=== PATIENT | female | born 1965 ===

== ENCOUNTER 2019-12-30 09:01 | Outpatient (REF) | payer MEDICAID, SELFPAY ==
--- NOTE | 2019-12-30 | MM_ITS ---
EXAMINATION: MM SCREENING DIGITAL BREAST TOMOSYNTHESIS, BILATERAL CLINICAL INFORMATION: Screening. Asymptomatic. The lifetime risk of breast cancer based on the Tyrer-Cuzick Model is 6%. COMPARISON: Outside mammography: 10/10/2016, 05/04/2014 ([facility]). TECHNIQUE: Digital breast tomosynthesis is performed in both the craniocaudal and mediolateral oblique views along with computer-aided detection (CAD). Synthesized 2D images are generated from the tomosynthesis. Additional bilateral exaggerated CC views are provided. FINDINGS: There are scattered areas of fibroglandular density (ACR BI-RADS breast composition Category b). There are no significant masses, abnormal calcifications, or other abnormalities. There are scattered bilateral round, rim, predominantly dermal calcifications again seen. The axilla and skin contours are unremarkable. MM/MM tomosynthesis screening BI IMPRESSION: No mammographic evidence of malignancy. ASSESSMENT: BI-RADS 1: Negative RECOMMENDATION: Routine annual mammography screening. This patient's information was entered into a reminder system with a target due date for their next mammogram.
== END 2019-12-30 09:02 | disposition home or self-care (01) ==
LOC: HO.MAMMO 09:01
PROVIDERS: PCP Family Medicine; Visit Provider Family Medicine
DX: Z12.31 Encounter for screening mammogram for malignant neoplasm of breast (principal)
CPT/HCPCS: 77063; 77067

== ENCOUNTER 2023-08-31 10:34 | Outpatient (REF) | payer MEDICAID, SELFPAY ==
--- NOTE | ~2023-08-31 | XR_ITS ---
EXAMINATION: XR LEFT WRIST AND HAND AND BILATERAL HIPS CLINICAL INFORMATION: Bilateral hip pain for years. Worsening left hand pain for 6 months, denies injury and states her left hand cramps with pain in her thumb. History of IP pain. Left/wrist, CMC joints of thumb chronic pain. Family history of metabolic bone disease. TECHNIQUE: 3 views left wrist, 3 views left hand, and 2 views of each hip. COMPARISON: None FINDINGS: LEFT WRIST: Ztjngbnz-ly-mpflke degenerative changes in the first carpometacarpal joint with joint space narrowing and hypertrophic change. Cystic lucencies are present at the base of the first metatarsal. Mild narrowing of the radiocarpal joint. LEFT HAND: Minimal degenerative changes in multiple IP joints. RIGHT HIP: Mild degenerative changes in the right hip. Alignment maintained. Limited visualization due to body habitus. LEFT HIP: Mild degenerative changes in the right hip. Alignment maintained. Limited visualization due to body habitus. XR/XR hand LT min 3V IMPRESSION: 1. Pyhiqhzq-pd-izvpgr degenerative changes in the first carpometacarpal joint. 2. Mild degenerative changes in the bilateral hips. 3. Additional imaging with CT scan or MRI recommended if there is clinical concern for fracture or other underlying pathology.
--- NOTE | ~2023-08-31 | XR_ITS ---
EXAMINATION: XR LEFT WRIST AND HAND AND BILATERAL HIPS CLINICAL INFORMATION: Bilateral hip pain for years. Worsening left hand pain for 6 months, denies injury and states her left hand cramps with pain in her thumb. History of IP pain. Left/wrist, CMC joints of thumb chronic pain. Family history of metabolic bone disease. TECHNIQUE: 3 views left wrist, 3 views left hand, and 2 views of each hip. COMPARISON: None FINDINGS: LEFT WRIST: Veujwhpe-qm-xigpdz degenerative changes in the first carpometacarpal joint with joint space narrowing and hypertrophic change. Cystic lucencies are present at the base of the first metatarsal. Mild narrowing of the radiocarpal joint. LEFT HAND: Minimal degenerative changes in multiple IP joints. RIGHT HIP: Mild degenerative changes in the right hip. Alignment maintained. Limited visualization due to body habitus. LEFT HIP: Mild degenerative changes in the right hip. Alignment maintained. Limited visualization due to body habitus. XR/XR hip RT min 2V IMPRESSION: 1. Evuieaqt-ab-ivyhir degenerative changes in the first carpometacarpal joint. 2. Mild degenerative changes in the bilateral hips. 3. Additional imaging with CT scan or MRI recommended if there is clinical concern for fracture or other underlying pathology.
--- NOTE | ~2023-08-31 | XR_ITS ---
EXAMINATION: XR LEFT WRIST AND HAND AND BILATERAL HIPS CLINICAL INFORMATION: Bilateral hip pain for years. Worsening left hand pain for 6 months, denies injury and states her left hand cramps with pain in her thumb. History of IP pain. Left/wrist, CMC joints of thumb chronic pain. Family history of metabolic bone disease. TECHNIQUE: 3 views left wrist, 3 views left hand, and 2 views of each hip. COMPARISON: None FINDINGS: LEFT WRIST: Detxiphl-bc-lrknce degenerative changes in the first carpometacarpal joint with joint space narrowing and hypertrophic change. Cystic lucencies are present at the base of the first metatarsal. Mild narrowing of the radiocarpal joint. LEFT HAND: Minimal degenerative changes in multiple IP joints. RIGHT HIP: Mild degenerative changes in the right hip. Alignment maintained. Limited visualization due to body habitus. LEFT HIP: Mild degenerative changes in the right hip. Alignment maintained. Limited visualization due to body habitus. XR/XR wrist LT min 3V IMPRESSION: 1. Tfcujfdg-tu-qqpjyk degenerative changes in the first carpometacarpal joint. 2. Mild degenerative changes in the bilateral hips. 3. Additional imaging with CT scan or MRI recommended if there is clinical concern for fracture or other underlying pathology.
--- NOTE | ~2023-08-31 | XR_ITS ---
EXAMINATION: XR LEFT WRIST AND HAND AND BILATERAL HIPS CLINICAL INFORMATION: Bilateral hip pain for years. Worsening left hand pain for 6 months, denies injury and states her left hand cramps with pain in her thumb. History of IP pain. Left/wrist, CMC joints of thumb chronic pain. Family history of metabolic bone disease. TECHNIQUE: 3 views left wrist, 3 views left hand, and 2 views of each hip. COMPARISON: None FINDINGS: LEFT WRIST: Lrlozxcd-ja-kpjhfp degenerative changes in the first carpometacarpal joint with joint space narrowing and hypertrophic change. Cystic lucencies are present at the base of the first metatarsal. Mild narrowing of the radiocarpal joint. LEFT HAND: Minimal degenerative changes in multiple IP joints. RIGHT HIP: Mild degenerative changes in the right hip. Alignment maintained. Limited visualization due to body habitus. LEFT HIP: Mild degenerative changes in the right hip. Alignment maintained. Limited visualization due to body habitus. XR/XR hip LT min 2V IMPRESSION: 1. Yyqclqbh-wn-cfjkcr degenerative changes in the first carpometacarpal joint. 2. Mild degenerative changes in the bilateral hips. 3. Additional imaging with CT scan or MRI recommended if there is clinical concern for fracture or other underlying pathology.
[2023-08-31 11:46] LABS: Estimated Average Glucose 137 mg/dL; Hemoglobin A1c % 6.4 % (<6.0)
[2023-08-31 11:50] LABS: Alanine Aminotransferase 21 U/L (0-31); Alkaline Phosphatase 62 U/L (39-117); Anion Gap 15 (12-20); Aspartate Amino Transferase 14 U/L (5-31); Bilirubin Total 0.5 mg/dL (0.0-1.0); Blood Urea Nitrogen 15 mg/dL (9-16); Calcium 9.5 mg/dL (8.4-10.2); Carbon Dioxide 21 mmol/L (22-29); Chloride 108 mmol/L (96-108); Cholesterol 225 mg/dL (<200); Estimated Glomerular Filt Rate 48; Glucose Random 126 mg/dL (60-115); HDL Cholesterol 36 mg/dL (>40); Potassium 3.8 mmol/L (3.3-5.1); Sodium 140 mmol/L (135-145); Total Protein 7.4 g/dL (6.5-8.0); Triglycerides 637 mg/dL (<150)
[2023-08-31 12:16] LABS: TSH reflex Free T4 1.43 uIU/mL (0.32-4.0)
[2023-08-31 12:36] LABS: Reflex LDLD? Yes
[2023-09-01 13:04] LABS: LDL Cholesterol Direct 55 mg/dL (<100)
[2023-09-05 18:53] LABS: HPV mRNA E6/E7 Detected (Not Detected)
== END 2023-08-31 10:35 | disposition home or self-care (01) ==
LOC: HO.HHCL 10:34
PROVIDERS: Visit Provider Family Medicine
DX: Z01.419 Encounter for gynecological examination (general) (routine) without abnormal findings (principal); E78.5 Hyperlipidemia, unspecified; I10 Essential (primary) hypertension; R73.01 Impaired fasting glucose; M62.838 Other muscle spasm; M79.645 Pain in left finger(s); G89.29 Other chronic pain; M25.551 Pain in right hip; M25.552 Pain in left hip; B97.7 Papillomavirus as the cause of diseases classified elsewhere; N72 Inflammatory disease of cervix uteri
CPT/HCPCS: 36415; 73110; 73130; 73502; 80053; 80061; 83036; 83721; 83735; 84443; 87624; 88175

== ENCOUNTER 2023-09-04 08:16 | Outpatient (REF) | payer MEDICAID, SELFPAY ==
--- NOTE | ~2023-09-04 | MM_ITS ---
EXAMINATION: MM SCREENING DIGITAL BREAST TOMOSYNTHESIS, BILATERAL CLINICAL INFORMATION: Screening. Asymptomatic. COMPARISON: Mammography: This study is compared with prior exams dating back to 2017. TECHNIQUE: Digital breast tomosynthesis is performed in both the craniocaudal and mediolateral oblique views along with computer-aided detection (CAD). Synthesized 2D images are generated from the tomosynthesis. FINDINGS: The breasts are almost entirely fatty (ACR BI-RADS breast composition Category a). There are no significant masses, abnormal calcifications, or other abnormalities. MM/MM tomosynthesis screening BI IMPRESSION: No mammographic evidence of malignancy. ASSESSMENT: BI-RADS BI-RADS 1 - Negative RECOMMENDATION: Routine annual mammography screening. 1 year F/U This examination should not preclude the clinical evaluation of a suspicious palpable abnormality. This patient's information was entered into a reminder system with a target due date for their next mammogram.
== END 2023-09-04 08:17 | disposition home or self-care (01) ==
LOC: HO.MAMMO 08:16
PROVIDERS: PCP Family Medicine; Visit Provider Family Medicine
DX: Z12.31 Encounter for screening mammogram for malignant neoplasm of breast (principal)
CPT/HCPCS: 77063; 77067

== ENCOUNTER → 2023-09-04 08:30 | Outpatient (BNV) | payer MEDICAID, SELFPAY | PROVIDERS: PCP Family Medicine; Visit Provider Radiology Diagnostic Radiology | DX: Z12.31 Encounter for screening mammogram for malignant neoplasm of breast (principal) | CPT/HCPCS: 77063; 77067 ==

== ENCOUNTER 2023-12-17 08:36 | Outpatient (AMB) | payer MEDICAID, SELFPAY ==
--- NOTE | 2023-12-17 10:04 | A.OFFVIS_ITS ---
Vital Signs 3 12/17/23 10:17 Height 5 ft 8 in Weight 256 lb 8 oz BMI 39.0 BP 166/82 H Blood Pressure Location Lt brachial Position Sitting Pulse 61 Intake Visit Reasons: Pilar cyst of scalp Intake Note: Patient is seen in office for evaluation and treatment of a pilar cyst of the scalp. Pt c/o: onset for years, has increase in size, painful and itchy, denies discharge, redness, swelling, had some removed in the past by Dr Rankin Pattern Filer Required: No Accompanied by: Self / Same As Patient Allergies No Known Allergies Allergy (Unverified 12/17/23 10:18) Medication List - Last Reconciled 12/17/23 by Lalo Shelley MD atenolol 50 mg PO DAILY loratadine 10 mg PO DAILY omeprazole 40 mg PO DAILY HPI Comments Details: 58-year-old female patient presenting for evaluation of a Pilar cyst. She has had numerous previous Pilar cyst removed by Dr. Rankin and feels this is similar. She reports for cysts and total including 2 in the posterior scalp 1 on the left parietal scalp and a 4th on the right parietal scalp. She feels the cysts have gradually increased in size over the years and is now itchy and causing irritation. She denies bleeding or discharge. [facility] Surgical History Hx of excision of mass History of bunionectomy Social History Alcohol intake: never Patient Tobacco Use Status: Never used Tobacco Review of Systems Const All systems reviewed & are unremarkable except as noted in HPI and below Denies chills, Denies fever(s), Denies headache(s), Denies poor appetite and Denies weakness ENT Denies headache(s) Card Denies chest pain, Denies irregular heart rhythm, Denies palpitations and Denies dyspnea Resp Denies cough, Denies excessive phlegm production and Denies dyspnea GI Denies abdominal pain, Denies bloating, Denies change in bowel habits, Denies constipation, Denies heartburn, Denies diarrhea, Denies nausea and Denies vomiting Denies urinary frequency Musc Denies back pain, Denies muscle weakness and Denies numbness Skin/Breast Denies changing lesions and Denies unusual bruising Neuro Denies headache(s), Denies numbness, Denies paresthesias and Denies weakness Psych Denies anxiety and Denies depression Endo Denies palpitations Edgar/Lymph Denies lymphadenopathy Physical Exam Vital Signs: Last Vital Signs Pulse 61 12/17/23 10:17 BP 166/82 H 12/17/23 10:17 BMI result Body Mass Index 39.0 Const General: cooperative and no acute distress Nutritional Appearance: well nourished Orientation/consciousness: patient oriented x3 Limitations: no limitations HEENT Head: Yes normocephalic and Yes atraumatic Head images: 2 1. 1.5 cm Pilar cyst 2. 1.5 cm Pilar cyst 3. 1.5 cm Pilar cyst 4. 1 cm Pilar cyst Ears: hearing grossly normal bilaterally Resp Effort & Inspection: normal respiratory effort, no audible wheezes, no cough and no respiratory distress Cardio Jugular venous distension: no JVD GI Inspection: Yes normal to inspection Skin Other: Warm, dry, no rash Neuro General: patient oriented x3 Extrem General: Yes no clubbing, cyanosis or edema Assessment & Plan Assessment & Plan (1) Pilar cyst of scalp: Code(s): L72.11 - Pilar cyst Category: Medical Plan Patient presents with for enlarging Pilar cysts of the scalp which are now causing irritation. She has requested excision of all 4 lesions. I reviewed the procedure, risks and alternatives, and she consents to the surgery. This will be performed as an office procedure under local anesthesia. Coding Level of Care Code New Pt Level 4 (32827) Diagnoses Pilar cyst of scalp L72.11
[2023-12-17 10:17] VITALS: BP 166/82; PULSE 61; BMI 39.0
== END 2023-12-17 10:31 | disposition home or self-care (01) ==
LOC: HO.HGS 08:36
PROVIDERS: PCP Family Medicine; Visit Provider Surgery
DX: L72.11 Pilar cyst (principal)
CPT/HCPCS: 99204

== ENCOUNTER → 2023-12-17 08:36 | Outpatient (BNVA) | payer MEDICAID, SELFPAY | PROVIDERS: PCP Family Medicine; Visit Provider Surgery | DX: L72.11 Pilar cyst (principal) | CPT/HCPCS: 99202 ==

== ENCOUNTER 2023-12-31 08:54 | Outpatient (AMB) | payer MEDICAID, SELFPAY ==
--- NOTE | 2023-12-31 09:14 | A.OFFVIS_ITS ---
Vital Signs 12/31/23 09:46 Height 5 ft 8 in Weight 255 lb 11.779 oz BMI 38.9 Pulse 60 Intake Visit Reasons: excision 4 lesions on scalp Intake Note: Patient is seen for office procedure, excision of multiple scalp lesion. Construction Grip Required: No Accompanied by: Self / Same As Patient Allergies No Known Allergies Allergy (Unverified 12/31/23 09:16) HPI Comments Details: Patient returns for excision of 4 Pilar cysts of the scalp. She denies any changes since her last visit. [facility] Surgical History Hx of excision of mass History of bunionectomy Social History Alcohol intake: never Patient Tobacco Use Status: Never used Tobacco Physical Exam HEENT Other: Four Pilar cyst as noted previously. Office Procedures Excision Details: Preoperative diagnosis: Pilar cyst x3 scalp Postoperative diagnosis: Same Procedure: Excision of Pilar cyst x3 Surgeon: Lalo Shelley MD Bridge Worker: None Anesthesia: Lidocaine 1% with epinephrine Indications for procedure: Enlarging painful Pilar cysts including 2 in the posterior scalp and 1 on the left parietal scalp each 1.5 cm in diameter Operative findings: 1.5 cm Pilar cyst x2 in the posterior scalp (occipital) and 1.5 cm Pilar cyst of the left parietal scalp Specimen: Pilar cyst x3 Estimated blood loss: 1 mL Complications: None Procedure details: Patient confirmed the site of surgery including 2 Pilar cyst in the posterior scalp and 1 in the left parietal scalp. The previously palpated cyst in the right parietal scalp is quite small and will be left in place. After assuring informed consent the patient was placed in a right lateral decubitus position. The scalp was prepped with Betadine and draped in a sterile fashion. Beginning in the occipital scalp local anesthesia was infiltrated over both adjacent cysts. An incision was made over each cyst and a hemostat used to excise the Pilar cyst at each site. These were sent together to pathology. Hemostasis was assured using light pressure. Skin was closed using a 3-0 Prolene suture at each site. Attention was then directed to the parietal scalp were again an incision was made after applying local anesthesia. Hemostat was then used to dissect the cyst from the subcutaneous tissue. Skin was closed using a 3-0 Prolene suture. The patient tolerated the procedure well and was discharged in stable condition. [id number] scalp/neck/hands/feet/genitalia 1.1cm-2cm (x 3 lesions 1.5 cm each) Procedure code (CPT) selection complete Assessment & Plan Assessment & Plan (1) Pilar cyst of scalp: Code(s): L72.11 - Pilar cyst Category: Medical Plan Pilar cyst x3 of scalp. Patient underwent excision of the Pilar cyst today under local anesthesia. Patient tolerated the procedure well and will return in 1 week for suture removal. Orders: Orders Surgical Today L72.11 - Pilar cyst Coding Level of Care Code Procedure Only Diagnoses Pilar cyst of scalp L72.11 CPT Codes Scalp/Neck/Hands/Feet/Genetalia - CPT: 77234-[id number] scalp/neck/hands/feet/genitalia 1.1cm-2cm ([id number])
[2023-12-31 09:46] VITALS: PULSE 60; BMI 38.9
== END 2023-12-31 09:47 | disposition home or self-care (01) ==
PROVIDERS: PCP Family Medicine; Visit Provider Surgery
DX: L72.11 Pilar cyst (principal)
CPT/HCPCS: 11422

== ENCOUNTER 2023-12-31 08:54 | Outpatient (REF) | payer MEDICAID, SELFPAY | END 2023-12-31 08:55 | disposition home or self-care (01) | LOC: HO.LNP 08:54 | PROVIDERS: PCP Family Medicine; Visit Provider Surgery | DX: L72.11 Pilar cyst (principal) | CPT/HCPCS: 11422; 88304 ==

== ENCOUNTER 2024-01-12 14:33 | Outpatient (AMB) | payer MEDICAID, SELFPAY ==
--- NOTE | 2024-01-12 14:46 | A.OFFVIS_ITS ---
Vital Signs 01/12/24 14:54 Height 5 ft 8 in Weight 257 lb 7.999 oz BMI 39.1 Pulse 62 Intake Visit Reasons: s/p excision 4 lesions on scalp stitch removal Intake Note: Patient is seen in office for post op assessment post excision of pilar cyst x3 of scalp. Pt c/o: denies any concerns, suture removed at visit Wealth Management Director Required: No Accompanied by: Self / Same As Patient Allergies No Known Allergies Allergy (Unverified 01/12/24 14:54) HPI Comments Details: Patient returns following excision of 3 Pilar cysts of the scalp. She tolerated the procedure well and returns today for suture removal. She denies any ongoing scalp symptoms. [facility] Surgical History Hx of excision of mass History of bunionectomy Social History Alcohol intake: never Patient Tobacco Use Status: Never used Tobacco Physical Exam Vital Signs: Last Vital Signs Pulse 62 01/12/24 14:54 BMI result Body Mass Index 39.1 HEENT Other: Wounds are clean, dry, and intact. Sutures removed and incisions found to be well healed. Skin Other: Warm, dry, no rashes Assessment & Plan Assessment & Plan (1) Pilar cyst of scalp: Code(s): L72.11 - Pilar cyst Category: Medical Plan Patient returns following excision of 3 Pilar cysts of the scalp. She tolerated the procedure well and her wounds are healing nicely. She should follow up as needed. Coding Level of Care Code Global (38939) Diagnoses Pilar cyst of scalp L72.11
[2024-01-12 14:54] VITALS: PULSE 62; BMI 39.1
== END 2024-01-12 15:03 | disposition home or self-care (01) ==
PROVIDERS: PCP Family Medicine; Visit Provider Surgery
DX: L72.11 Pilar cyst (principal)
CPT/HCPCS: 99024

== ENCOUNTER → 2024-01-12 14:33 | Outpatient (BNVA) | payer MEDICAID, SELFPAY | PROVIDERS: PCP Family Medicine; Visit Provider Surgery | DX: Z48.02 Encounter for removal of sutures (principal); Z87.2 Personal history of diseases of the skin and subcutaneous tissue; Z98.890 Other specified postprocedural states | CPT/HCPCS: 99212 ==

== ENCOUNTER 2024-05-16 08:19 | Outpatient (REF) | payer MEDICAID, SELFPAY ==
[2024-05-16 13:08] LABS: Estimated Average Glucose 275 mg/dL; Hemoglobin A1c % 11.2 % (<6.0); Total Hemoglobin (HGBA1C) 3671.5637 umol/L
[2024-05-16 13:41] LABS: Creatinine Urine 47.52 mg/dL; Microalbum/Creatinine Ratio Ur 25.2 ug/mg cr (<30)
[2024-05-16 13:53] LABS: Cholesterol 437 mg/dL (<200); HDL Cholesterol 23 mg/dL (>40)
[2024-05-16 14:16] LABS: Triglycerides 3269 mg/dL (<150)
[2024-05-16 14:52] LABS: Alanine Aminotransferase 45 U/L (0-31); Albumin Level 3.8 g/dL (3.5-5.0); Alkaline Phosphatase 96 U/L (39-117); Anion Gap 19 (12-20); Aspartate Amino Transferase 35 U/L (5-31); Bilirubin Total 0.5 mg/dL (0.0-1.0); Blood Urea Nitrogen 18 mg/dL (9-16); Calcium 9.1 mg/dL (8.4-10.2); Carbon Dioxide 21 mmol/L (22-29); Chloride 98 mmol/L (96-108); Estimated Glomerular Filt Rate 38; Glucose Random 499 mg/dL (60-115); Potassium 4.5 mmol/L (3.3-5.1); Sodium 133 mmol/L (135-145); TSH reflex Free T4 1.69 uIU/mL (0.32-4.0); Total Protein 7.5 g/dL (6.5-8.0); Vitamin D 25-OH Total 30.5 ng/mL (>30)
[2024-05-16 15:01] LABS: Reflex LDLD? Yes
[2024-05-17 05:15] LABS: LDL Cholesterol Direct 72 mg/dL (<100)
== END 2024-05-16 08:20 | disposition home or self-care (01) ==
LOC: HO.HHCL 08:19
PROVIDERS: Visit Provider Family Medicine
DX: I12.9 Hypertensive chronic kidney disease with stage 1 through stage 4 chronic kidney disease, or unspecified chronic kidney disease (principal); N18.31 Chronic kidney disease, stage 3a; E78.5 Hyperlipidemia, unspecified; E55.9 Vitamin D deficiency, unspecified; M62.838 Other muscle spasm
CPT/HCPCS: 36415; 80053; 80061; 82043; 82306; 82570; 83036; 83721; 83735; 84443

== ENCOUNTER 2024-08-10 09:16 | Outpatient (AMB) | payer MEDICAID, SELFPAY ==
[2024-08-10 09:36] VITALS: BMI 39.1
--- NOTE | 2024-08-10 09:36 | MHC.OFFVIS ---
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 Patient states she is having locking an catching in her left ring finger. Reports she has tried special medicated gloves, helped with pain as well as the locking and catching, also reports using a thumb brace. hx of arthritis. States she is having numbness and tingling in bilateral hands. Allergies Seasonal Allergies Allergy (Mild, Verified 08/10/24 09:45) Sneezing HPI HPI CHANGE MANAGEMENT ADMINISTRATOR: B/L trigger finger Thumb, MF: Details: Jamilah is a 59 year old right hand dominant female who presents today for bilateral locking and catching. Patient states she is having locking an catching in her left ring finger. Reports she has tried special medicated gloves, helped with pain as well as the locking and catching, also reports using a thumb brace. hx of arthritis. States she is having numbness and tingling in bilateral hands. [facility] Surgical History Hx of excision of mass History of bunionectomy Social History Alcohol intake: never Patient Tobacco Use Status: Never used Tobacco Review of Systems Const All systems reviewed & are unremarkable except as noted in HPI and below Physical Exam Vital Signs: BMI result Body Mass Index 39.1 Extrem Other: Patient is alert, oriented, and in no acute distress. Neuro: Normal sensation of the tips of all digits of the bilateral hands at this time Vascular: Cap refill brisk Pain: To pain associated with locking and catching of bilateral thumbs and left ring finger Tenderness to palpation of the A1 pulleys of the digits ROM: Visible and palpable locking and catching of bilateral thumbs and left ring finger Patient is able to flex and extend all other digits of bilateral hands fully and without difficulty Skin: No lacerations or abrasions. General: No ecchymosis, erythema, or evidence of infection. Psych: Appears grossly normal Affect normal Attitude cooperative Assessment & Plan Assessment & Plan (1) Bilateral trigger thumb: Code(s): M65.311 - Trigger thumb, right thumb; M65.312 - Trigger thumb, left thumb Category: Medical (2) Trigger finger, left ring finger: Code(s): M65.342 - Trigger finger, left ring finger Category: Medical Plan 1. Bilateral trigger thumbs 2. Left ring finger trigger finger Patient is educated about this condition Patient is educated about the typical treatment course At this time, patient would like to hold off on any acute intervention Follow-up when she is ready to discuss intervention Coding Level of Care Code New Pt Level 3 (27068) Diagnoses Bilateral trigger thumb M65.311; M65.312 Trigger finger, left ring finger M65.342
== END 2024-08-10 09:57 | disposition home or self-care (01) ==
LOC: HO.HOS 09:17
PROVIDERS: PCP Family Medicine
DX: M65.311 Trigger thumb, right thumb (principal); M65.312 Trigger thumb, left thumb; M65.342 Trigger finger, left ring finger
CPT/HCPCS: 99203

== ENCOUNTER → 2024-08-10 09:16 | Outpatient (BNVA) | payer MEDICAID, SELFPAY | PROVIDERS: PCP Family Medicine | DX: M65.311 Trigger thumb, right thumb (principal); M65.312 Trigger thumb, left thumb; M65.342 Trigger finger, left ring finger | CPT/HCPCS: 99212 ==

== ENCOUNTER 2024-08-17 11:01 | Outpatient (REF) | payer MEDICAID, SELFPAY ==
--- OUTSIDE RECORDS SUMMARY | 2024-08-17 11:46 | XMS_ITS | Encounter Summary ---
Author Organization [employer] Address [address] [place] [address] Care Team Providers Care Wet Silk Hanger Name Role Phone Susy Mills MD Primary Care Provider [phone] Cloten Leavitt PharmD Unavailable [phone] Encounter Details Date Type Department Care Team (Latest Contact Info) Description 08/17/2024 Travel Social History Tobacco Use Types Packs/Day Years Used Date Smoking Tobacco: Never Passive Smoke Exposure: Never Smokeless Tobacco: Never Depression Answer Date Recorded Patient Health Questionnaire-9 Score 7 05/09/2024 Patient Health Questionnaire-9 Score 7 05/09/2024 Last PHQ-9: Questionnaire Data Not on file 0 05/09/2024 Housing Stability Answer Date Recorded What is your housing situation today? I have caleb dietrich 08/31/[address] you li ve. Do you have problems with any of the following? None of the above 08/31/2023 Food Insecurity Answer Date Recorded Within the past 12 months, y ou worried that your food would run out before you got money to buy more: Never True 08/31/2023 Within the past 12 months,th e food you bought just didn't last and you didn't have enough money to get more: Never True Transportation Answer Date Recorded In the past 12 months, has l ack of transportation kept you from medical appts, meetings, work or from getting things needed for daily living? No 08/31/2023 Utilities Answer Date Recorded In the past 12 months, has t he electric, gas, oil or water company threatened to shut off services in your home? No 08/31/2023 Depression Answer Date Recorded Patient Health Questionnaire-2 Score 1 05/09/2024 Internet Access Answer Date Recorded Internet Access Q1 No 10/19/2023 Internet Access Q2 I do not want or need it 03/2023 Comments Unknown Sex and Gender Information Value Date Recorded Sex Assigned at Female 12/16/2021 10:15 AM EDT Legal Sex Female 10:15 AM EDT Gender Identity Female 12/16/2021 10:15 AM EDT Sexual Orientation Choose not to disclose 2021 10:15 AM EDT documented as of this encounter Functional Status * Over the last 2 weeks, how often have you been bothered by any of the following problems? Question Answer Date of Assessment Author Feeling nervous, anxious, or on edge 3 08/17/2024 9:09 AM LOYDT Dionna Kang MA Not being able to stop or control worrying 3 08/17/2024 9:09 AM EDT Dionna Kang MA Worrying too much about different things 3 08/17/2024 9:09 AM EDT Dionna Kang MA Trouble relaxing 3 08/17/2024 9:09 AM EDT Lucina Felix MA Being so restless that it is hard to sit still 3 08/17/2024 9:09 AM LOYDT Dionna Kang MA Becoming easily annoyed or irritable 3 08/17/2024 9:09 AM EDT Dionna Kagn MA Feeling afraid as if somethi ng awful might happen 3 08/17/2024 9:09 AM LOYDT Dionna Kang MA ZENIA-7 Total Score 21 08/17/2024 9:09 AM LOYDT Lucina Kang MA documented as of this encounter Plan of Treatment Upcoming Encounters Date Type Department Care Team (Late st Contact Info) Description 08/26/2024 9:00 AM EDT Office Visit [facility] [address] [place] [address] Holly Gonzalez, OD [address] [place] [address] documented as of this encounter Goals Goal Patient Goal Type Associated Problems Recent Progress Patient-Stated? Author Blood Pressure < 140/90 Blood Pressure 130/90( 025 9:09 AM EDT) No Colten Leavitt, PharmD documented as of this encounter Visit Diagnoses Not on filedocumented in this encounter Additional Health Concerns Assessment Noted Time PHQ-9 Depression Total Score: 7 05/10/19 25 1:05 PM EDT documented as of this encounter Care Teams Wet Silk Hanger Relationship Specialty Start Date End Date Susy Mills MD [address] [place] [address] PCP - General Family Medicine 09/02/13 Colten Leavitt, PharmD [address] [place] [address] Pharmacist Internal Medicine 10/06/23 documented as of this encounter
[2024-08-17 13:59] LABS: Alanine Aminotransferase 16 U/L (0-31); Albumin Level 4.3 g/dL (3.5-5.0); Alkaline Phosphatase 98 U/L (39-117); Anion Gap 18 (12-20); Aspartate Amino Transferase 24 U/L (5-31); Blood Urea Nitrogen 15 mg/dL (9-16); Calcium 9.9 mg/dL (8.4-10.2); Carbon Dioxide 22 mmol/L (22-29); Chloride 94 mmol/L (96-108); Cholesterol 429 mg/dL (<200); Estimated Glomerular Filt Rate 47; HDL Cholesterol 30 mg/dL (>40); Potassium 4.0 mmol/L (3.3-5.1); Sodium 130 mmol/L (135-145); Total Protein 8.4 g/dL (6.5-8.0); Triglycerides 2153 mg/dL (<150)
[2024-08-17 14:25] LABS: Reflex LDLD? Yes
== END 2024-08-17 11:02 | disposition home or self-care (01) ==
LOC: HO.HHCL 11:01
PROVIDERS: PCP Family Medicine; Visit Provider Family Medicine
DX: E78.5 Hyperlipidemia, unspecified (principal); R74.01 Elevation of levels of liver transaminase levels; N18.32 Chronic kidney disease, stage 3b
CPT/HCPCS: 36415; 80048; 80061; 80076; 83721

== ENCOUNTER 2024-09-09 08:05 | Outpatient (REF) | payer MEDICAID, SELFPAY ==
--- OUTSIDE RECORDS SUMMARY | 2024-09-09 08:09 | XMS_ITS | Encounter Summary ---
Author Organization [employer] Address [address] [place] [address] Care Team Providers Care Photocopier Technician Name Role Phone Susy Mills MD Primary Care Provider [phone] Colten Leavitt PharmD Unavailable [phone] Encounter Details Date Type Department Care Team (Latest Contact Info) Description 02/22/2018 Abstract [facility] CONVERSIONS Dental, Provider, DDS Social History Tobacco Use Types Packs/Day Years Used Date Smoking Tobacco: Never Assessed Comments Unknown Sex and Gender Information Value Date Recorded Sex Assigned at Female 12/16/2021 10:15 AM EDT Legal Sex Female 10:15 AM EDT Gender Identity Female 12/16/2021 10:15 AM EDT Sexual Orientation Choose not to disclose 2021 10:15 AM EDT documented as of this encounter Plan of Treatment Upcoming Encounters Date Type Department Care Team (Late st Contact Info) Description 10/19/2024 9:00 AM EDT Medication Management [facility] MEDICINE [address] [place] [address] Colten Leavitt, PharmD [address] [place] [address] 10/25/2024 9:15 AM EDT Office Visit [facility] MEDICINE [address], [place] [phone] Susy Mills MD [address], [place] 11/28/2024 9:15 AM EDT Office Visit [facility] OPTOMETRY [address] [place] [id number] [phone] Lisa Holly, OD [address] [place] [address] documented as of this encounter Visit Diagnoses Not on filedocumented in this encounter Care Teams Photocopier Technician Relationship Specialty Start Date End Date Susy Mills MD [address], [place] [phone] PCP - General Family Medicine 09/02/13 Colten Leavitt, SharlaD [address], [place] [phone] Pharmacist Internal Medicine 10/06/23 documented as of this encounter
== END 2024-09-09 08:06 | disposition home or self-care (01) ==
LOC: HO.MAMMO 08:05
PROVIDERS: Visit Provider Family Medicine
DX: Z12.31 Encounter for screening mammogram for malignant neoplasm of breast (principal)
CPT/HCPCS: 77063; 77067

== ENCOUNTER → 2024-09-09 08:30 | Outpatient (BNV) | payer MEDICAID, SELFPAY | PROVIDERS: Visit Provider Internal Medicine | DX: Z12.31 Encounter for screening mammogram for malignant neoplasm of breast (principal) | CPT/HCPCS: 77063; 77067 ==